=== PATIENT | female | born 1950 | race Caucasian/White ===

== ENCOUNTER 2024-11-06 10:35 | Outpatient (AMB) | payer MEDICARE, SELFPAY ==
--- NOTE | 2024-11-06 11:20 | MHC.OFFWIV ---
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 - The diarrhea is not associated with any blood or black discoloration, she denies fevers/chills. - Nausea or vomiting are not experienced along with diarrhea. - The patient mentions a past cardiac arrest during surgery 15 years ago, but no recent significant cardiac symptoms were noted. Physical Exam General: Cooperative, healthy appearing, comfortable, no acute distress and well developed Orientation: Patient oriented x3 Limitations: No limitations Head: Normal to inspection Ears: Hearing grossly normal bilaterally Nose: Normal External nose present Face and sinus: Normal facial exam Eyes: Appearance normal, both eyes and all related structures Neck: Normal visual inspection and Yes full ROM Respiratory: Normal respiratory effort and able to speak in complete sentences. GI: soft, no TTP Skin: No rashes or lesions noted Neuro: Patient oriented x3 Extremities: Normal to inspection Review of Systems Const All systems reviewed & are unremarkable except as noted in HPI and below Physical Exam Vital Signs: Last Vital Signs Pulse 76 11/06/24 11:31 BP 122/76 11/06/24 11:21 Pulse Ox 97 11/06/24 11:31 Oxygen Delivery Method Room Air 11/06/24 11:31 Office Procedures EKG Details: EKG NSR 78BPM, LBBB, no acute changes [id number], Complete Assessment & Plan Assessment & Plan (1) Diarrhea due to drug: Code(s): K52.1 - Toxic gastroenteritis and colitis Plan: EKG NSR, LBBB with no acute changes. I advised the patient to discontinue amoxicillin to alleviate her antibiotic-associated diarrhea symptoms. Patient should call her dentist to ask them to change her antibiotic. Maintaining hydration with electrolytes like Pedialyte was recommended, alongside the possible use of probiotics to help with gastrointestinal symptoms. Tylenol was suggested for any discomfort, avoiding ibuprofen to prevent stomach upset. I instructed her to monitor her symptoms and seek medical care if she experiences any signs of gastrointestinal bleeding. This approach aims to manage symptoms while preventing additional adverse effects related to the antibiotic treatment. Patient was informed and verbally consented to the use of an ambient scribe for clinic note documentation during this visit Coding Level of Care Code New Pt Level 4 (37703) Diagnoses Diarrhea due to drug K52.1 CPT Codes EKG - CPT: 55221-[id number], Complete ([id number])
[2024-11-06 11:21] VITALS: BP 122/76; PULSE 76; O2SAT 97
[2024-11-06 11:31] VITALS: PULSE 76; O2SAT 97
== END 2024-11-06 11:42 | disposition home or self-care (01) ==
PROVIDERS: Visit Provider Physician Assistant
DX: K52.1 Toxic gastroenteritis and colitis (principal)

== ENCOUNTER → 2024-11-06 10:35 | Outpatient (BNVA) | payer MEDICARE, SELFPAY | PROVIDERS: Visit Provider Physician Assistant | DX: K52.1 Toxic gastroenteritis and colitis (principal); I44.7 Left bundle-branch block, unspecified | CPT/HCPCS: 93005; 99202 ==